=== PATIENT | female | born 1995 | race Caucasian/White ===

== ENCOUNTER 2017-11-26 03:17 | Emergency (ER) | payer OTHER ==
[2017-11-26 03:39] VITALS: BP 132/89; PULSE 98; TEMP 97.6; BMI 27.4
--- NOTE | 2017-11-26 04:23 | PDOC ---
History of Present Illness - General Chief Complaint: Injury Stated Complaint: FALL Time Seen by Provider: 11/26/17 04:05 History Source: Patient Exam Limitations: No Limitations - History of Present Illness Initial Comments: 11/26/17 04:23 22-year-old female with no medical history presents to the emergency department complaining of right frontal headache described as 5/10 dull nonradiating intermittent discomfort without nausea/vomiting, neck pain/back pains, chest pain, shortness of breath, flank pains, abdominal pains, extremity numbness or tingling sensation, bladder or bowel dysfunction. Patient states as she was assisting her friend down a flight of stairs, they both lost their balance and she fell headfirst down approximately 5 steps. Patient denies any LOC but complains of an abrasion to her right frontal forehead. Last menses: unk due to control Occurred: reports: other (0100hrs) Past History - Past Medical History Allergies/Adverse Reactions: Allergies Allergy/AdvReac Type Severity Reaction Status Date / Time No Known Allergies Allergy Unverified 11/26/17 03:38 Home Medications: Ambulatory Orders No Home Medications 02/14/13 Oxycodone HCl/Acetaminophen [Percocet 5-325 mg Tablet] 1 - 2 combo PO Q4H #10 tablet 02/14/13 Silver Sulfadiazine 1% Top Cr [Silvadene] 1 applic TP BID #1 jar 02/14/13 - Immunization History Td Vaccination: Yes - Suicide/Smoking/Psychosocial Hx Smoking Status: No Smoking History: Never smoked Have you smoked in the past 12 months: No Number of Cigarettes Smoked Daily: 0 Information on smoking cessation initiated: No Hx Alcohol Use: No Drug/Substance Use Hx: No Review of Systems - Review of Systems Able to Perform ROS?: Yes Comments:: 11/26/17 04:23 CONSTITUTIONAL: Absent: fever, chills, diaphoresis, generalized weakness, malaise, loss of appetite HEENT: Absent: rhinorrhea, nasal congestion, throat pain, throat swelling, difficulty swallowing, mouth swelling, ear pain, eye pain, visual Changes CARDIOVASCULAR: Absent: chest pain, loss of consciousness, palpitations, irregular heart rate, peripheral edema RESPIRATORY: Absent: cough, shortness of breath, dyspnea with exertion, orthopnea, wheezing, stridor, hemoptysis GASTROINTESTINAL: Absent: abdominal pain, abdominal distension, nausea, vomiting, diarrhea, constipation, melena, hematochezia GENITOURINARY: Absent: dysuria, frequency, urgency, hesitancy, hematuria, flank pain, genital pain MUSCULOSKELETAL: Absent: myalgia, arthralgia, joint swelling SKIN: Absent: rash, itching, pallor HEMATOLOGIC/IMMUNOLOGIC: Absent: easy bleeding, easy bruising, lymphadenopathy, frequent infections ENDOCRINE: Absent: unexplained weight gain, unexplained weight loss, heat intolerance, cold intolerance NEUROLOGIC: Absent: headache, focal weakness or paresthesias, dizziness, unsteady gait, seizure, mental status changes, bladder or bowel incontinence Is the patient limited Kiswahili proficient: No *Physical Exam - Vital Signs Last Vital Signs Temp Pulse Resp BP Pulse Ox 97.6 F 98 H 20 132/89 99 11/26/17 03:38 11/26/17 03:38 11/26/17 03:38 11/26/17 03:38 11/26/17 03:38 - Physical Exam Comments: 11/26/17 04:23 GENERAL: Well developed, well nourished. Awake and alert. No acute distress. HEENT: Normocephalic, atraumatic. PERRLA, EOMI. No conjunctival pallor. Sclera are non- icteric. Moist mucous membranes. Oropharynx is clear. NECK: Supple. Full ROM. No JVD. Carotid pulses 2+ and symmetric, without bruits. No thyromegaly. No lymphadenopathy. CARDIOVASCULAR: Regular rate and rhythm. No murmurs, rubs, or gallops. Distal pulses are 2+ and symmetric. PULMONARY: No evidence of respiratory distress. Lungs clear to auscultation bilaterally. No wheezing, rales or rhonchi. ABDOMINAL: Soft. Non-tender. Non-distended. No rebound or guarding. No organomegaly. Normoactive bowel sounds. MUSCULOSKELETAL Normal range of motion at all joints. No bony deformities or tenderness. No CVA tenderness. EXTREMITIES: No cyanosis. No clubbing. No edema. No calf tenderness. SKIN: Warm and dry. Normal capillary refill. No rashes. No jaundice. NEUROLOGICAL: 2cm superficial abrasion to right frontal forehead Alert, awake, appropriate. Cranial nerves 2-12 intact. No deficits to light touch and temperature in face, upper extremities and lower extremities. No motor deficits in the in face, upper extremities and lower extremities. Normoreflexic in the upper and lower extremities. Normal speech. Toes are down- going bilaterally. Gait is normal without ataxia. PSYCHIATRIC: Cooperative. Good eye contact. Appropriate mood and affect. 11/26/17 04:49 ED Treatment Course - RADIOLOGY Radiograph Interpretation: 11/26/17 04:50 CT head w/o contrast: neg Progress Note - Progress Note Progress Note: 0544hrs: Patient adamantly refuses a CT head without contrast at this time. Patient advised to follow with her physician. She was also advised to return back to the emergency department for any concerns, persistent/worsening/severe symptoms *DC/Admit/Observation/Transfer Diagnosis at time of Disposition: Scalp abrasion Qualifiers: Encounter type: initial encounter Qualified Code(s): S00.01XA - Abrasion of scalp, initial encounter Headache Qualifiers: Headache type: other headache syndrome Qualified Code(s): G44.89 - Other headache syndrome Fall Qualifiers: Encounter type: initial encounter Qualified Code(s): W19.XXXA - Unspecified fall, initial encounter - Discharge Dispostion Disposition: HOME Condition at time of disposition: Stable Admit: No - Referrals Referrals: Johanne Bedoya [Primary Care Provider] - Terrance Mills MD [Staff Physician] - - Patient Instructions Printed Discharge Instructions: DI for Headache Additional Instructions: Apply bacitracin to you scalp for the abrasion daily Rest Take Tylenol as needed for the pain Increase fluids Return back to the emergency department for severe/persistent or worsening symptoms Follow with the neurologist as noted on your discharge paperwork/[id number]/ [phone] - Post Discharge Activity
== END 2017-11-26 05:57 | disposition home or self-care (01) ==
LOC: JER 03:17
DX: S00.01XA Abrasion of scalp, initial encounter (principal); G44.89 Other headache syndrome; W10.8XXA Fall (on) (from) other stairs and steps, initial encounter; Y93.89 Activity, other specified; Y92.89 Other specified places as the place of occurrence of the external cause; Y99.8 Other external cause status
CPT/HCPCS: 84703; 99282-25

== ENCOUNTER 2018-11-27 20:10 | Emergency (ER) | payer OTHER ==
[2018-11-27 20:16] VITALS: BP 106/74; PULSE 88; TEMP 98.5; BMI 30.4
--- NOTE | 2018-11-27 21:24 | PDOC ---
History of Present Illness - General Chief Complaint: Respiratory Stated Complaint: COUGH X 1 MONTH Time Seen by Provider: 11/27/18 20:22 - History of Present Illness Initial Comments: This 23-year-old woman with a history of asthma as a child but no other medical problems presents with a few week history of cough productive of yellowish sputum and intermittent wheezing. The patient states that illness began as " the flu" with upper respiratory symptoms, also being experienced by all members of her immediate family. While they recovered, the patient continued to have cough, subjective fever and wheezing, especially at night. She had been seen last week at urgent care and was given prescription for Z-Eliot which she finished yesterday. Since she continues to have symptoms, she presents here. Patient's asthma symptoms were mainly when she was a child. She had no history of hospitalization/intubation for asthma. She has not had any recent episodes of bronchitis until now. LMP 2 months ago (implanted contraceptive device) Denies smoking/alcohol/other recreational drugs Denies daily medication Past History - Past Medical History Allergies/Adverse Reactions: Allergies Allergy/AdvReac Type Severity Reaction Status Date / Time No Known Allergies Allergy Verified 11/27/18 20:12 Home Medications: Ambulatory Orders Albuterol Sulfate Inhaler - [Ventolin HFA Inhaler -] 1 - 2 inh PO QID PRN #1 inhaler 11/27/18 Clarithromycin [Biaxin -] 250 mg PO BID #14 tablet 11/27/18 predniSONE [Deltasone -] 20 mg PO DAILY #2 tablet 11/27/18 COPD: No - Immunization History Td Vaccination: Yes - Suicide/Smoking/Psychosocial Hx Smoking Status: No Smoking History: Never smoked Have you smoked in the past 12 months: No Number of Cigarettes Smoked Daily: 0 Information on smoking cessation initiated: No Hx Alcohol Use: No Drug/Substance Use Hx: No Review of Systems - Review of Systems Able to Perform ROS?: Yes Comments:: 12 point review of systems is negative except for what is noted in the history of present illness *Physical Exam - Vital Signs Last Vital Signs Temp Pulse Resp BP Pulse Ox 98.5 F 88 16 106/74 100 11/27/18 20:14 11/27/18 20:14 11/27/18 20:14 11/27/18 20:14 11/27/18 20:14 - Physical Exam Comments: GENERAL: Adult female, alert and oriented 3, speaking in full sentences with no evidence of acute respiratory distress HEAD: Normal with no signs of trauma. EYES: PERRLA, EOMI, sclera anicteric, conjunctiva clear. ENT: Ears normal, nares patent, oropharynx clear without exudates. Dry mucous membranes. NECK: Normal range of motion, supple without lymphadenopathy, JVD, or masses. LUNGS: Breath sounds equal, scattered right-sided expiratory wheezes, no rhonchi and no crackles. HEART:Regular rate and rhythm, normal S1 and S2 without murmur, rub or gallop. ABDOMEN:.normal bowel sounds No guarding,tenderness or rebound.No masses No distention. EXTREMITIES: Normal range of motion, no edema. No clubbing or cyanosis. No erythema, or tenderness. NEUROLOGICAL: Cranial nerves II through XII grossly intact. Normal speech. No focal neurological deficits. MUSCULOSKELETAL: Back non-tender to palpation, no CVA tenderness SKIN: Warm, Dry, normal turgor, no rashes or lesions noted. Moderate Sedation - Procedure Monitoring Vital Signs: Procedure Monitoring Vital Signs Temperature 98.5 F 11/27/18 20:14 Pulse Rate 88 11/27/18 20:14 Respiratory Rate 16 11/27/18 20:14 Blood Pressure 106/74 11/27/18 20:14 O2 Sat by Pulse Oximetry (%) 100 11/27/18 20:14 Progress Note - Progress Note Progress Note: Because of the presence of wheezing on physical exam, DuoNeb nebulizer treatment given to the patient. Repeat physical exam revealed clear rest sounds and better air exchange after nebulizer treatment. PGU negative Chest x-ray, PA and lateral performed. Preliminary reading -No evidence of pneumonia or pleural effusion. No other abnormality seen Medical Decision Making - Medical Decision Making Clinical presentation most consistent with asthmatic bronchitis. Patient will be discharged with prescription for clarithromycin 250 mg twice a day for one week. The patient currently does not have an inhaler and prescription for albuterol inhaler to be used as needed up to 4 times a day. Patient will also be given one dose of prednisone 20 mg now and take additional 20 mg daily for the next 2 days. Patient should return to the emergency room if she has shortness of breath, persistent severe wheezing, high fever or chest pain. Patient does not currently have PMD; she will be given referral information for Dr. Segura with whom she should follow-up within the next 5-7 days *DC/Admit/Observation/Transfer Diagnosis at time of Disposition: Asthmatic bronchitis Qualifiers: Asthma severity: mild Asthma persistence: intermittent Asthma complication type : with acute exacerbation Qualified Code(s): J45.21 - Mild intermittent asthma with (acute) exacerbation - Discharge Dispostion Disposition: HOME Condition at time of disposition: Stable - Prescriptions Prescriptions: Albuterol Sulfate Inhaler - [Ventolin HFA Inhaler -] 1 - 2 inh PO QID PRN #1 inhaler PRN Reason: Asthma Clarithromycin [Biaxin -] 250 mg PO BID #14 tablet predniSONE [Deltasone -] 20 mg PO DAILY #2 tablet - Referrals Referrals: Dony Segura MD [Staff Physician] - 1 week - Patient Instructions Printed Discharge Instructions: Acute Bronchitis Additional Instructions: rest; drink plenty of fluids clarithromycin 250mg twice a day for 1 week Prednisone 20mg daily for 2 more days Albuterol inhaler 2 puffs 4 X day as needed for wheezing followup with Dr Segura within 1 week return to ER if you have shortness of breath or wheezing - Post Discharge Activity Forms/Work/School Notes: Back to Work
[2018-11-27] MEDS ORDERED: ALBUTEROL SO4 2.5/IPRATROPIUM 0.5 INH SOL 3 ML VIAL.NEB. NEB ONE ×2 (21:36→21:39)
[2018-11-27] MEDS ORDERED: predniSONE 20 MG TABLET (UD) PO ONE (22:47)
[2018-11-27] MEDS ORDERED: predniSONE 20 MG TABLET (UD) ONE (22:50)
== END 2018-11-27 23:07 | disposition home or self-care (01) ==
LOC: FER 20:10
PROC: 3E0F7GC Introduction of Other Therapeutic Substance into Respiratory Tract, Via Natural or Artificial Opening (ICD-10-PCS; principal; 2018-11-27)
DX: J45.21 Mild intermittent asthma with (acute) exacerbation (principal)
CPT/HCPCS: 71046-TC-FY; 84703; 94640; 99281-25

== ENCOUNTER 2024-08-11 18:15 | Emergency (ER) | payer OTHER ==
[2024-08-11 18:24] VITALS: BP 135/87; PULSE 102; RESP 18; TEMP 98.2; BMI 34.1
[2024-08-11] MEDS ORDERED: ACETAMINOPHEN 500 MG TABLET (FP) ONE (21:18)
[2024-08-11] MEDS: ACETAMINOPHEN 500 MG TABLET (FP) PO ONE (21:23)
== END 2024-08-11 22:29 | disposition home or self-care (01) ==
LOC: FER 18:15
DX: S02.2XXA Fracture of nasal bones, initial encounter for closed fracture (principal); V43.12XA Car passenger injured in collision with other type car in nontraffic accident, initial encounter
CPT/HCPCS: 70450-TC; 70480-TC; 70486-TC; 84703; 99284-25